=== PATIENT | male | born 1950 | race African-American/Black ===

== ENCOUNTER 2022-03-20 16:15 | Emergency (ER) | payer OTHER ==
[~2022-03-20] VITALS: Ht 175.3 cm; Wt 82.0 kg
[2022-03-20 17:03] LABS: BASOPHILS % 1.2 % (0.0-2.0); EOSINOPHILS % 2.9 % (0.0-5.0); HEMATOCRIT. 38.1 % (42.0-52.0); HEMOGLOBIN. 13.3 g/dL (14.0-18.0); LYMPHOCYTES % 17.8 % (20.0-50.0); MEAN CORPUSCULAR HEMOGLOBIN 34.5 pg (28.0-32.0); MEAN CORPUSCULAR VOLUME 98.7 fL (80.0-94.0); MEAN PLATELET VOLUME 7.5 fl (7.4-10.4); MONOCYTES % 8.1 % (2.0-8.0); PLATELET 223 x1000/uL (130-400); RED BLOOD CELL COUNT 3.86 mill/uL (4.7-6.1); RED CELL DISTRIBUTION WIDTH 13.9 % (11.6-14.6)
[2022-03-20 18:41] LABS: CHLORIDE 106 mEq/L (98-107)
[2022-03-20] MEDS ORDERED: ALBUTEROL 6.7GM HFA INHALER ORI ONE (20:15)
[2022-03-20 21:59] VITALS: BP 135/83
== END 2022-03-20 22:55 | disposition short-term general hospital (02) ==
LOC: ER 16:15 → CANBEDREQ 03-23 00:56
DX: R07.89 Other chest pain (principal); I11.9 Hypertensive heart disease without heart failure; E78.00 Pure hypercholesterolemia, unspecified; Z20.822 Contact with and (suspected) exposure to COVID-19; Z95.0 Presence of cardiac pacemaker
CPT/HCPCS: 36415; 71045; 80053; 83880; 84484; 85025; 87426; 93005; 94640; 99285; C9803